=== PATIENT | female | born 1990 | race Caucasian/White ===

== ENCOUNTER 2024-06-27 07:59 | Emergency (ER) | payer OTHER ==
[~2024-06-27] VITALS: Ht 162.6 cm; Wt 68.0 kg
[2024-06-27 08:15] VITALS: O2SAT 21
[2024-06-27 08:41] LABS: BASOPHILS % 0.2 % (0.0-2.0); EOSINOPHILS % 0.6 % (0.0-5.0); HEMATOCRIT. 36.8 % (36.0-48.0); HEMOGLOBIN. 11.9 g/dL (12.0-16.0); LYMPHOCYTES % 23.1 % (20.0-50.0); MEAN CORPUSCULAR HEMOGLOBIN 27.1 pg (28.0-32.0); MEAN CORPUSCULAR HGB CONC 32.4 g/dL (31.0-37.0); MEAN CORPUSCULAR VOLUME 83.6 fL (81.0-99.0); MEAN PLATELET VOLUME 9.3 fl (7.4-10.4); MONOCYTES % 6.5 % (2.0-8.0); NEUTROPHILS % 69.6 % (40.0-76.0); PLATELET 288 x1000/uL (130-400); RED CELL DISTRIBUTION WIDTH 14.8 % (11.6-14.6); WHITE BLOOD COUNT 10.6 x1000/uL (4.5-11.0)
[2024-06-27 08:43] LABS: INR 0.9; PROTHROMBIN TIME 10.1 sec (9.6-11.0)
[2024-06-27 08:51] LABS: CHLORIDE 104 mEq/L (98-107); POTASSIUM 3.8 mEq/L (3.5-5.1); SODIUM 136 mEq/L (136-145)
[2024-06-27 08:52] LABS: CALCIUM 9.2 mg/dL (8.7-10.4); CARBON DIOXIDE 22 mEq/L (21-32)
[2024-06-27 08:57] LABS: CREATININE 0.6 mg/dL (0.6-1.0); GLUCOSE 88 mg/dL (70-105); UREA NITROGEN BLOOD 6 mg/dL (9-23)
[2024-06-27] MEDS: LACTATED RINGERS 500 ML IV ONE (10:09)
[2024-06-27] MEDS ORDERED: FLUC150T46 MT (10:18)
[2024-06-27 10:45] VITALS: BP 121/73; PULSE 122; RESP 20; TEMP 36.83628; O2SAT 100
== END 2024-06-27 10:50 | disposition short-term general hospital (02) ==
LOC: EDBD 07:59 → ER 07:59
DX: O42.90 Premature rupture of membranes, unspecified as to length of time between rupture and onset of labor, unspecified weeks of gestation (principal); O71.1 Rupture of uterus during labor; Z3A.37 37 weeks gestation of pregnancy
CPT/HCPCS: 36415; 76805; 80048; 85025; 86592; 86705; 86850; 86900; 96360; 99285